=== PATIENT | female | born 1950 | race Caucasian/White ===

== ENCOUNTER 2024-12-10 15:40 | Emergency (ER) | payer OTHER, SELFPAY ==
[2024-12-10 15:43] VITALS: BP 108/77
--- NOTE | 2024-12-10 17:07 | ED.GENMED ---
History of Present Illness
General
Chief Complaint: Anxiety
Source: patient
Exam Limitations: none
Time Seen by Provider: 12/10/24 16:25
History of Present Illness
History of Present Illness:
Patient describing heart pounding for the last 24 hours. Currently resolved. No shortness of breath no pleuritic pain no fever chills or cough. Now feels fine. Is tapering her bipolar medications. No cardiac history. No syncope near syncope or
other concerning symptoms
Past History
Past History
ED Past Medical History: Psychiatric
Review of Systems
Review of Systems
All Other Systems: Not applicable
Respiratory: Reports no symptoms
Cardiac: Denies chest pain or syncope
ABD/GI: Denies abdominal pain
Phy Exam
Physical Exam
Physical Exam:
GENERAL: Alert and oriented in no apparent distress
EYE: Orbits normal.
NECK: Supple. No thyroid palpable
ENT: Pharynx without erythema
CARDIAC: Regular rate and rhythm without any obvious murmurs.
LUNGS: Clear breath sounds,normal
ABDOMEN: Soft, without focal tenderness or distention
NEUROLOGICAL: Alert and oriented , grossly non-focal
SKIN: Warm and dry, no rash or lesion, no discoloration, skin intact.
MUSCULOSKELETAL: No edema,no deformity.Good color
PSYCH: Normal and appropriate interaction.
Course
Orders/Labs/Results
Orders:
Orders
12/10/24 16:34
EKG [Electrocardiogram (*1)] Urgent
Reason for Study: Palpitations
EKG- Treatment ONCE
Vital Signs
Initial and Last Documented VS:
Initial Vital Signs
Temp Pulse Resp BP Pulse Ox
98.4 F 89 16 108/77 97
12/10/24 15:43 12/10/24 15:43 12/10/24 15:43 12/10/24 15:43 12/10/24 15:43
Last Documented Vital Signs
Temp Pulse Resp BP Pulse Ox
98.4 F 89 16 108/77 97
12/10/24 15:43 12/10/24 15:43 12/10/24 15:43 12/10/24 15:43 12/10/24 17:10
MDM/Problems Addressed
Differential Diagnosis Includes:
Patient with transient heart pounding that resolved. Totally asymptomatic. Exam within normal limits. EKG normal. Low suspicion for serious etiology. Likely secondary to her medication tapering.
*Pulse Oximetry
SaO2: 97
Oxygen Mode of Delivery: Room air
Patient hypoxic: no
*EKG
Interpreted by ED Provider?: Yes
Interpretation: normal
Comparison EKG: no comparison EKG present
Heart Rate: 68
Rate: normal
Rhythm: sinus
[place]: normal axis
Interval: normal interval
QRS Pattern: normal QRS
Ischemia: no ischemia
*Critical Care Note
Total Time (30-74mins, 75-104mins- exclusive of procedures): Not Applicable
ED Attending Note
-
Portions of this chart may have been created with voice recognition software.� Occasional wrong word or��sound alike� substitutions may have occurred due to the inherent limitations of voice recognition software.
Discharge Plan
Departure
Patient Disposition: Home (Routine Discharge)
Date of Disposition: 12/10/24
Time of Disposition: 17:09
Patient with high blood pressure during this ER visit?: No
Discharge Problem:
Palpitations
Instructions: Palpitations - ED (DC)
Activity Restrictions/Additional Instructions:
Follow-up closely with your primary physician
Interventions
Interventions:
*Risk Screen - Suicide Last Done: 12/10/24 15:43
*Neglect/Abuse Screening Last Done: 12/10/24 15:43
ED-Psychological Assessment Last Done: 12/10/24 16:04
Discharge Date and Time
Print Language: [place] CITIZ[place]
== END 2024-12-10 17:15 | disposition home or self-care (01) ==
LOC: EMR 15:40
PROVIDERS: EMERGENCY PHYSICIAN Emergency Medicine; FAMILY PHYSICIAN Physician Assistant Medical
DX: R00.2 Palpitations (principal)
CPT/HCPCS: 99283; 93005